=== PATIENT | male | born 1980 | race Caucasian/White ===

== ENCOUNTER 2020-06-25 09:07 | Emergency (ER) | payer OTHER ==
--- NOTE | 2020-06-25 10:06 | EDM.PDOC ---
ED HPI GENERAL MEDICAL PROBLEM - General Chief Complaint: Back Pain or Injury Stated Complaint: SEPTIC ARTHRITIS IN T12 SENT BY [facility] Time Seen by Provider: 06/25/20 09:50 Source of Information: Reports: Patient History Limitations: Reports: No Limitations - History of Present Illness INITIAL COMMENTS - FREE TEXT/NARRATIVE: 40-year-old male presents to the ED at the instruction of his pain management physician in [place]. Patient underwent a MRI and a CT of his thoracic and lumbar spine yesterday. MRI had suggested previously there is shiny area in T12 vertebra. CT exam done yesterday at [facility] in [place] was then over read by radiologist this morning and he received instructions from his pain management physician in [place] who ordered the tests to go to the nearest hospital. Patient came to our hospital. The CT over read by the radiologist at [place] in [place] suggest that he has septic arthritis involving T12 vertebra. The patient has had chronic low back pain and has bulging disks at L4 and L5 as well. He denies any night sweats no fever chills. No severe or worsening pain in his lower back. He has had no spinal injections that could cause an infection. Patient was advised that he more or less should proceed to [facility] in [place] for definitive management. If he has septic arthritis of T12 vertebra he would require a PICC line and daily IV antibiotic medication for 4 to 6 weeks. This could be done at the infusion clinic in [place] or in our hospital. However he needs a definitive diagnosis possible bone marrow biopsy possible triple phase bone scan and extensive lab work to confirm the diagnosis before a treatment plan could be devised. Patient was therefore instructed to travel to [place] this morning to the ED at [place] in [place]. 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 He is a [facility] patient.). Denies: Activity, Exercise, Lifting, Sick Contact, Trauma Treatments ROPER OPERATOR: Reports: Other (see below) (Pain management.) Lower Back Pain Score (Numeric/FACES): 3 - Related Data Allergies Allergy/AdvReac Type Severity Reaction Status Date / Time No Known Allergies Allergy Verified 06/25/20 09:22 Home Meds: Home Meds . [Unable to Verify Home Med List] 06/25/20 [History] Past Medical History HEENT History: Reports: Impaired Vision Respiratory History: Reports: Sleep Apnea Gastrointestinal History: Reports: GERD Endocrine/Metabolic History: Reports: Obesity/BMI 30+ - Infectious Disease History Infectious Disease History: Reports: Chicken Pox - Past Surgical History HEENT Surgical History: Reports: Tonsillectomy Social & Family History - Tobacco Use Tobacco Use Status *Q: Never Tobacco User - Caffeine Use Caffeine Use: Reports: None - Recreational Drug Use Recreational Drug Use: No - Living Situation & Occupation Living situation: Reports: Single Occupation: Disabled ED ROS GENERAL - Review of Systems Review Of Systems: See Below Constitutional: Reports: Malaise, Weakness, Fatigue. Denies: Fever, Chills, Decreased Appetite, Weight Loss HEENT: Reports: Glasses Respiratory: Reports: Shortness of Breath Cardiovascular: Denies: Chest Pain, Blood Pressure Problem, Claudication, Lightheadedness, Orthopnea Endocrine: Reports: Fatigue GI/Abdominal: Reports: No Symptoms : Reports: No Symptoms Musculoskeletal: Reports: Joint Pain (Ankles knees hips low back and neck at times) Skin: Reports: No Symptoms Neurological: Reports: No Symptoms Psychiatric: Reports: Other (PTSD). Denies: Homicidal Ideation Hematologic/Lymphatic: Reports: No Symptoms Immunologic: Reports: No Symptoms ED EXAM,LOWER BACK PAIN/INJURY - Physical Exam Exam: See Below Exam Limited By: No Limitations General Appearance: Alert, WD/WN, No Apparent Distress, Other (Temperature is 36.9 with a heart rate of 82 and sinus respiratory is 13 with O2 sats of 98% room air. BP 147/88.) Back Exam: Other (Could localize no areas of tenderness in the mid or lower thoracic spine. He has limited ability to forward flex and can touch only the mid anterior aspect of his thighs with pain worsening on full extension of his back. Pain on firm compression over the sacroiliac joints.) Extremities: Normal Inspection, Normal Range of Motion, Non-Tender, No Pedal Edema Course - Vital Signs Last Recorded V/S: Last Vital Signs Temp 36.9 C 06/25/20 09:22 Pulse 82 06/25/20 09:22 Resp 13 06/25/20 09:22 BP 147/88 H 06/25/20 09:22 Pulse Ox 98 06/25/20 09:22 - Radiology Interpretation Free Text/Narrative:: 40-year-old male presents to our ED essentially by mistake. He has a pain management physician in [place]. He is a [facility] patient. He is being investigated for chronic back pain by way of an MRI which suggested a shiny area of T12 vertebra. Subsequently he underwent a CT scan without contrast yesterday at [facility] here in [place]. The CT was over read by the radiologist and he received a phone call this morning from the pain management physician who ordered the test that he has a septic arthritis in T12 vertebra. Patient reassured that there is nothing that we could do for him here. He may need a series of investigations to prove this diagnosis and devise a treatment plan. If he truly has septic arthritis he needs lab work. He would need a PICC line insertion for daily IV antibiotics for up to 6 weeks of treatment. Patient advised accordingly and he plans on traveling to [facility] in [place] for definitive management and investigation today. Departure - Departure Time of Disposition: 10:09 Disposition: DC/Tfer to Acute Hospital 02 Condition: Undetermined Clinical Impression: Abnormal CT of thoracic spine Chronic low back pain Qualifiers: Back pain laterality: midline Sciatica presence: with sciatica - Discharge Information *PRESCRIPTION DRUG MONITORING PROGRAM REVIEWED*: No *COPY OF PRESCRIPTION DRUG MONITORING REPORT IN PATIENT SARAI: No Instructions: Chronic Back Pain, [id number] Referrals: Jennifer Santiago AG SERVICE MANAGER [Primary Care Provider] - Forms: ED Department Discharge Additional Instructions: Patient will travel to [facility] in [place] for definitive management of possible septic arthritis of T12 vertebra thoracic spine identified by CT scan at [facility] here in [place] yesterday. Sepsis Event Note (ED) - Evaluation Sepsis Screening Result: No Definite Risk - Focused Exam Vital Signs: Vital Signs Temp Pulse Resp BP Pulse Ox 06/25/20 09:22 36.9 C 82 13 147/88 H 98
== END 2020-06-25 10:45 ==
LOC: JD.ED 09:07
DX: M54.40 Lumbago with sciatica, unspecified side (principal); R94.8 Abnormal results of function studies of other organs and systems
CPT/HCPCS: 99284

== ENCOUNTER 2021-04-23 22:13 | Emergency (ER) | payer OTHER ==
[2021-04-23] MEDS: Morphine 4 MG/ML Syringe IVPUSH ONE (23:24)
[2021-04-23] MEDS: Sodium Chloride 0.9% 1,000 ML IV ONE (23:45)
[2021-04-24] MEDS: metroNIDAZOLE/Normal Saline 500 MG in Premix Bag 1 BAG IV ONE (00:28)
[2021-04-24] MEDS: Sodium Chloride 0.9% 100 ML ONE (00:34)
[2021-04-24] MEDS: Iopamidol 612 MG/ML 100 ML Bottle IVPUSH ONE (00:43)
[2021-04-24] MEDS: Sodium Chloride 0.9% 10 ML SDV FLUSH ONE (00:43)
[2021-04-24] MEDS: Iopamidol 612 MG/ML 50 ML SDV IVPUSH ONE (00:43)
[2021-04-24] MEDS ORDERED: Sodium Chloride 0.9% 100 ML IV SCH (00:45)
[2021-04-24] MEDS: Piperacillin/Tazobactam 4.5 GM in Sodium Chloride 0.9% 100 ML IV STA (00:50)
[2021-04-24] MEDS: Sodium Chloride 0.9% 1,000 ML IV ONE ×2 (00:50→01:53)
[2021-04-24] MEDS: Sodium Chloride 0.9% 1,000 ML IV SCH (02:52)
[2021-04-24] MEDS: Morphine 4 MG/ML Syringe IVPUSH ONE (02:52)
== END 2021-04-24 03:05 | disposition home or self-care (01) ==
LOC: JD.ED 22:13
DX: A41.9 Sepsis, unspecified organism (principal); K61.1 Rectal abscess; E11.9 Type 2 diabetes mellitus without complications; I10 Essential (primary) hypertension; E66.01 Morbid (severe) obesity due to excess calories; K21.9 Gastro-esophageal reflux disease without esophagitis; Z79.899 Other long term (current) drug therapy; Z20.822 Contact with and (suspected) exposure to COVID-19; Z68.43 Body mass index [BMI] 50.0-59.9, adult
CPT/HCPCS: 36415; 74177; 74177-26; 80053; 83605; 85025; 87040; 96365; 96368; 96375; 96376; 99285-25; J2270; J2543; J3490; J7030; Q9967; U0002